=== PATIENT | female | born 1950 | race Caucasian/White ===

== ENCOUNTER 2024-07-01 09:24 | Inpatient (IN) ==
[2024-07-01 09:42] VITALS: BMI 27.6
[2024-07-01] MEDS: SODIUM CHLORIDE 1,000 ML IV SCH (10:23)
--- NOTE | 2024-07-01 11:06 | DI ---
EXAM: SINGLE VIEW CHEST. HISTORY: Shortness of breath, fever COMPARISON: 06/23/2024 FINDINGS: The cardiomediastinal silhouette appears prominent, however the cardiothoracic index cannot be assessed on this exam. Midline sternotomy and operative changes of the proximal aorta are seen. A lead less pacemaker device is suggested overlying the heart. Calcified plaques overlie the aorta. Pulmonary vascularity is within normal limits. Small right basilar consolidation is seen. Mild bl unting of the right costophrenic angle is present. There is no evidence of pneumothorax. Lower cerv ical ACDF changes are seen. Osseous structures are unremarkable. IMPRESSION: Right basilar consolidation concerning for pneumonia. Recommend follow-up to demonstrate resolution. Questionable small right pleural effusion. Prominent heart size with postoperative changes.
--- NOTE | 2024-07-01 11:44 | PCM ---
Date of Service Date Seen by Provider: 07/01/24 Admit Day/Time Admission Date: 07/01/24 Reason for Admission Chief Complaint: STROKE Hospital Provider Hospital Provider: KAYLENE SALDANA, [facility] Primary Care Physician Primary Care Physician: VIDAL WINN History of Present Illness History of Present Illness: 74 yo female initially admitted to this facility for swingbed following frequent hospitalizations due to MESA cirrhosis hepatic encephalopathy and dehydration. Around 5 am when lab went in to draw, patient was not answer questions well. This was reported to nursing staff. Day shift RN assessed patient and was found to be flaccid, unable to follow commands, unable to move extremities. Able to state her name and husbands name but unable to answer any other questions. Head CT completed and negative. Admitted to Med/Surg Inpatient for further work-up. Due to neuro deficit, unable to complete HPI and ROS. [facility] Medical History Stroke (07/01/24) I63.9 - Cerebral infarction, unspecified (ICD-10) Pacemaker Z95.0 - Presence of cardiac pacemaker (ICD-10) CKD (chronic kidney disease) N18.9 - Chronic kidney disease, unspecified (ICD-10) Mild malnutrition E44.1 - Mild protein-calorie malnutrition (ICD-10) Hypercalcemia E83.52 - Hypercalcemia (ICD-10) Fatigue R53.83 - Other fatigue (ICD-10) Secondary hyperparathyroidism N25.81 - Secondary hyperparathyroidism of renal origin (ICD-10) PAF (paroxysmal atrial fibrillation) I48.0 - Paroxysmal atrial fibrillation (ICD-10) Mild intermittent asthma J45.20 - Mild intermittent asthma, uncomplicated (ICD-10) Mixed hyperlipidemia E78.2 - Mixed hyperlipidemia (ICD-10) Glaucoma H40.9 - Unspecified glaucoma (ICD-10) Iron deficiency anemia D50.9 - Iron deficiency anemia, unspecified (ICD-10) Restless leg syndrome G25.81 - Restless legs syndrome (ICD-10) Insomnia G47.00 - Insomnia, unspecified (ICD-10) Chronic pain G89.29 - Other chronic pain (ICD-10) GERD (gastroesophageal reflux disease) K21.9 - Gastro-esophageal reflux disease without esophagitis (ICD-10) Hypothyroidism E03.9 - Hypothyroidism, unspecified (ICD-10) Neuropathy G62.9 - Polyneuropathy, unspecified (ICD-10) Vitamin D deficiency E55.9 - Vitamin D deficiency, unspecified (ICD-10) Liver cirrhosis K74.60 - Unspecified cirrhosis of liver (ICD-10) Hypotension I95.9 - Hypotension, unspecified (ICD-10) CHF (congestive heart failure) I50.9 - Heart failure, unspecified (ICD-10) Surgical History S/P TAVR (transcatheter aortic valve replacement) Z95.2 - Presence of prosthetic heart valve (ICD-10) H/O section Z98.891 - History of uterine scar from previous surgery (ICD-10) History of hysterectomy Z90.710 - Acquired absence of both cervix and uterus (ICD-10) H/O mitral valve replacement with mechanical valve Z95.2 - Presence of prosthetic heart valve (ICD-10) Social History Smoking and tobacco status: Never smoker Substance use type: does not use Allergies Allergies Allergy/AdvReac Type Severity Reaction Status Date / Time cefepime Allergy Severe Swelling Verified 07/01/24 16:11 Penicillins AdvReac Unknown Verified 07/01/24 16:11 Current Medications Home Medications Saccharomyces boulardii 250 mg capsule (Florastor) 250 mg PO .QDAC 06/27/24 [History Confirmed 07/01/24 Last Taken Unknown] albuterol sulfate 90 mcg/actuation aerosol inhaler (Ventolin HFA) 2 puff inhalation 4XD PRN wheezing 06/27/24 [History Confirmed 07/01/24 Last Taken Unknown] allopurinol 100 mg tablet 100 mg PO DAILY 06/27/24 [History Confirmed 07/01/24 Last Taken Unknown] amiodarone 200 mg tablet 200 mg PO DAILY 06/27/24 [History Confirmed 07/01/24 Last Taken Unknown] ascorbic acid (vitamin C) 250 mg tablet (Vitamin C) 250 mg PO DAILY 06/27/24 [History Confirmed 07/01/24 Last Taken Unknown] atorvastatin 20 mg tablet 20 mg PO DAILY 06/27/24 [History Confirmed 07/01/24 Last Taken Unknown] brimonidine 0.15 % eye drops 1 drp ophthalmic (eye) 2XD 06/27/24 [History Confirmed 07/01/24 Last Taken Unknown] bumetanide 2 mg tablet 2 mg PO DAILY 06/27/24 [History Confirmed 07/01/24 Last Taken Unknown] cinacalcet 30 mg tablet 30 mg PO DAILY 06/27/24 [History Confirmed 07/01/24 Last Taken Unknown] epoetin cirilo-epbx 10,000 unit/mL injection solution 10,000 unit subcut WEEKLY 06/27/24 [History Confirmed 07/01/24 Last Taken Unknown] ferrous sulfate 325 mg (65 mg iron) tablet 325 mg PO QAM 06/27/24 [History Confirmed 07/01/24 Last Taken Unknown] fluticasone furoate 100 mcg/actuation blister powder for inhalation (Arnuity Ellipta) 1 inh inhalation BID 06/27/24 [History Confirmed 07/01/24 Last Taken Unknown] hydrocodone 7.5 mg-acetaminophen 325 mg tablet 1 tab PO Q12H PRN pain 06/27/24 [History Confirmed 07/01/24 Last Taken Unknown] ipratropium bromide 21 mcg (0.03 %) nasal spray 2 spray intranasal BID 06/27/24 [History Confirmed 07/01/24 Last Taken Unknown] lactulose 10 gram/15 mL oral solution (Enulose) 30 g PO .ACHS 06/27/24 [History Confirmed 07/01/24 Last Taken Unknown] latanoprost 0.005 % eye drops, emulsion 1 drp BOTHEYES BEDTIME 06/27/24 [History Confirmed 07/01/24 Last Taken Unknown] levothyroxine 125 mcg tablet 125 mcg PO DAILY 06/27/24 [History Confirmed 07/01/24 Last Taken Unknown] lidocaine 5 % topical patch 1 - 3 patch topical DAILY 06/27/24 [History Confirmed 07/01/24 Last Taken Unknown] menthol 0.44 %-zinc oxide 20.6 % topical ointment (Calmoseptine) 1 applic topical DAILY 06/27/24 [History Confirmed 07/01/24 Last Taken Unknown] midodrine 10 mg tablet 10 mg PO 3XD 06/27/24 [History Confirmed 07/01/24 Last Taken Unknown] multivitamin with minerals-folic acid 200 mcg chewable tablet (Adult Multivitamin Gummies) 2 tab PO DAILY 06/27/24 [History Confirmed 07/01/24 Last Taken Unknown] nystatin 100,000 unit/gram topical powder 1 applic topical TID 06/27/24 [History Confirmed 07/01/24 Last Taken Unknown] ondansetron 4 mg disintegrating tablet 4 mg PO Q8H PRN nausea/vomiting 06/27/24 [History Confirmed 07/01/24 Last Taken Unknown] pantoprazole 40 mg tablet,delayed release 40 mg PO DAILY 06/27/24 [History Confirmed 07/01/24 Last Taken Unknown] pregabalin 25 mg capsule (Lyrica) 25 mg PO BID 06/27/24 [History Confirmed 07/01/24 Last Taken Unknown] rifaximin 550 mg tablet 550 mg PO BID 06/27/24 [History Confirmed 07/01/24 Last Taken Unknown] ropinirole 1 mg tablet 1 mg PO .COMPLEX 06/27/24 [History Confirmed 07/01/24 Last Taken Unknown] sodium chloride 0.65 % nasal spray aerosol ([place] Saline) 2 spray intranasal 5XD PRN dry nasal passages 06/27/24 [History Confirmed 07/01/24 Last Taken Unknown] spironolactone 100 mg tablet 100 mg PO 2XD 06/27/24 [History Confirmed 07/01/24 Last Taken Unknown] sucralfate 1 gram tablet 1 g PO BID 06/27/24 [History Confirmed 07/01/24 Last Taken Unknown] trazodone 50 mg tablet 50 mg PO BEDTIME 06/27/24 [History Confirmed 07/01/24 Last Taken Unknown] warfarin 3 mg tablet (Jantoven) 3 mg PO DAILY 06/27/24 [History Confirmed 07/01/24 Last Taken Unknown] Home Albuterol/Ipratropium (Ipratropium/Albuterol Vial.Neb) 3 ml NEB RTQ4H [facility] Last Admin: 07/01/24 18:19 Dose: 3 ml Enoxaparin Sodium (Enoxaparin Sodium 100 Mg/Ml Syr) 80 mg SUBCUT 1700 [place] Sodium Chloride (Sodium Chloride) 1,000 mls @ 75 mls/hr IV .[id number] [facility] Last Admin: 07/01/24 10:23 Dose: 75 mls/hr VANCOMYCIN/WATER FOR INJ (PEG) (Vancomycin 750 Mg/150 Ml Bag) 750 mg in 150 mls @ 150 mls/hr IV Q48HR [facility] Stop: 07/04/24 12:59 Last Admin: 07/01/24 13:41 Dose: 150 mls/hr Aztreonam 2 gm/ Sodium (Chloride) 100 mls @ 150 mls/hr IV Q12HR [facility] Stop: 07/04/24 20:59 Non-Formulary Medication (Brimonidine) 1 drop EACHEYE 2XD [facility] Non-Formulary Medication (Ipratropium [place]) 2 spray JV BID [facility] Non-Formulary Medication (Latanoprost) 1 drop OP BEDTIME [facility] Discontinued Medications Enoxaparin Sodium (Enoxaparin Sodium 100 Mg/Ml Syr) 80 mg SUBCUT 1700 [place] Famotidine (Famotidine Inj 20 Mg/2 Ml Vial) 20 mg IVP ONCE ONE Stop: 07/01/24 14:12 Last Admin: 07/01/24 14:33 Dose: 20 mg Acetaminophen (Acetaminophen) 1,000 mg in 100 mls @ 400 mls/hr IV ONCE ONE Stop: 07/01/24 11:59 Last Admin: 07/01/24 12:06 Dose: 400 mls/hr CEFEPIME 2 GM/D5W (Maxipime 2 Gm/50 Ml D5w) 2 gm in 50 mls @ 100 mls/hr IV ONCE ONE Stop: 07/01/24 12:29 Last Admin: 07/01/24 12:28 Dose: 100 mls/hr Doxycycline Hyclate 100 mg/ (Sodium Chloride) 100 mls @ 50 mls/hr IV Q12HR [facility] Stop: 07/04/24 13:59 Last Admin: 07/01/24 14:56 Dose: Not Given Diphenhydramine HCl 25 mg/ (Sodium Chloride) 100.5 mls @ 200 mls/hr IV ONCE STA Stop: 07/01/24 14:41 Last Admin: 07/01/24 14:55 Dose: Not Given Sodium Chloride (Sodium Chloride) 500 mls @ 500 mls/hr IV BOLUS ONE Stop: 07/01/24 18:15 Last Admin: 07/01/24 17:20 Dose: 500 mls/hr Methylprednisolone Sodium Succinate (Methylprednisolone Sod Succ/Pf 125 Mg/2 Ml Vial) 125 mg IVP ONCE ONE Stop: 07/01/24 14:12 Last Admin: 07/01/24 14:33 Dose: 125 mg Opioid Naive vs. Tolerant Does Patient Take Opioids?: Yes Is Patient Opioid Naive?: No What is Opioid Naive?: *Opioid Naive implies the patient is not already taking opioids or not chroni rossy receiving opioids on a daily basis. *PRN dosing is not "usually" associated with tolerance. *Patients are at higher risk of over-sedation and aspiration. Is Patient Opioid Tolerant?: No What is Opioid Tolerant?: *Opioid Tolerance implies less than the expected response to an opioid. *Acquired tolerance is defined by the patient taking 60mg of oral morphine daily (or equianalgesic dose of another opioid) for 1 week or more. *Often associated with chronic pain. *May take more than usual dose to achieve desired pain control. Physical examination Most Recent Vital Signs: Most Recent Vital Signs Temperature 100.1 F 07/01/24 10:00 Temperature Source Temporal Artery Scan 07/01/24 10:00 Pulse Rate 74 07/01/24 10:00 Respiratory Rate 22 H 07/01/24 10:00 Blood Pressure 124/52 L 07/01/24 10:00 Blood Pressure Mean 76 07/01/24 10:00 Blood Pressure Left Arm 124/52 07/01/24 09:30 Blood Pressure Location Left Arm 07/01/24 10:00 Blood Pressure Position Supine 07/01/24 10:00 O2 Sat by Pulse Oximetry 95 07/01/24 11:27 Oxygen Delivery Method Nasal Cannula 07/01/24 11:27 Oxygen Flow Rate 2 07/01/24 11:27 Height 5 ft 8 in 07/01/24 09:30 Weight 182 lb 07/01/24 09:30 Appearance: Positive Ill-Appearing Skin: Positive Warm HEENT: Positive Normocephalic and PERRLA Neck: Positive Supple and Midline Trachea Chest/Lungs: Positive Symmetrical With Equal Breath Sounds and Other (diminished on Right) Heart: Positive Pulses Normal, Irregular Rhythm, No S3 Auscultated and No S4 Auscultated GI/: Positive Soft, Nontender, Bowel Sounds Normal and No Distention Musculoskeletal: Positive Not Examined Extremities: Positive Intact Peripheral Pulses and Stable Joints Without Laxity Neurological: Positive Disorinted and Other (Lethargic, Responsive to verbal stimuli, Unable to follow commands) Labs This Visit Labs This Visit: Labs This Visit 07/01/24 07/01/24 10:01 10:15 Lactic Acid 4.61 H Ammonia 22.4 Procalcitonin 60.73 H Imaging Imaging: EXAM: CT OF THE HEAD WITHOUT CONTRAST. FINDINGS: The examination is suboptimal secondary to streak artifacts. No intracranial hemorrhage or mass effect is identified. Mild prominence of the sulci is seen. The ventricles are normal in size and configuration. Mild periventricular white matter hypodensities are identified. Left frontoparietal encephalomalacia is again seen. No definite large area of ervin white matter differentiation loss is seen. Intracranial calcified plaque is noted. The calvarium is intact. The visualized paranasal sinuses are unopacified. IMPRESSION: Suboptimal exam. No evidence of an acute intracranial process. Stable left frontoparietal encephalomalacia. Mild atrophy and chronic small vessel ischemic changes. EXAM: SINGLE VIEW CHEST. FINDINGS: The cardiomediastinal silhouette appears prominent, however the cardiothoracic index cannot be assessed on this exam. Midline sternotomy and operative changes of the proximal aorta are seen. A lead less pacemaker device is suggested overlying the heart. Calcified plaques overlie the aorta. Pulmonary vascularity is within normal limits. Small right basilar consolidati on is seen. Mild blunting of the right costophrenic angle is present. There is no evidence of pneumothorax. Lower cervical ACDF changes are seen. Osseous structures are unremarkable. IMPRESSION: Right basilar consolidation concerning for pneumonia. Recommend follow-up to demonstrate resolution. Questionable small right pleural effusion. Prominent heart size with postoperative changes. Review Statement Review Statement: I have independently reviewed and interpreted the labs/EKGs/imaging that were ordered by the ER provider. I have reviewed all outside records that are available currently in our EMR including imaging/notes/labs from previous visits. Plan Plan: 1. Sepsis in setting of HAP - blood cultures pending, trend procal and lactic, broad spectrum antibiotics initiated, unable to complete fluid requirement due to CHF 2. Hospital Acquired Pneumonia - cefepime, doxycycline, and vanco ordered initially, patient had reaction to cefepime; switched to merrem and vanc, legionella, strep pneumo, and mrsa ordered 3. Acute Metabolic Encephalopathy vs Stroke - CT head completed to r/o stroke, unable to complete CTA due to renal function at this time - will complete once improvement, discussed with family can do MRI if mental status does not improve with treatment of pneumonia, avoid neurologically altering agents, NPO 4. Acute on Chronic CKD4 - creatinine baseline around 1.8, up to 2.5 currently; NS@75mL/hr, holding diuretics/nephrotoxins 5. Hyponatremia - mild, likely due to #3, receiving NS, will monitor 6. MESA Cirrhosis - Chronic, continue home medications, check ammonia prn 7. A fib - Chronic, not in RVR, continue home medications 8. CHF - Chronic, currently dry, holding diuretics due to #3 9. Chronic Anemia - procrit injection every tuesday, give 40 units if hemoglobin <11 10. H/O Mechanical Valve Replacement - Continue coumadin with goal INR 2-2.5, INR was supratherapeutic at [facility], was subtherapeutic on Tuesday, currently therapeutic, pharmacy assisting with dosing DVT Prophylaxis: Lovenox due to inability to swallow orl medications Time Spent: Greater than 80 minutes spent with patient, 50% of the time spent with this patient was devoted to counseling and coordination of care. [facility] minutes spent discussing advance care planning. Disposition: Admit to: Med/surg Inpatient Full Code Discussed Plan of Care with Dr. Lexi Hernandez. Medications Medication Orders: Medications Ordered Category Date Time Status Sodium Chloride 0.9% [Sodium Chloride] 1,000 ml Meds 07/01/24 09:30 Active IV 75 mls/hr
[2024-07-01] MEDS: ACETAMINOPHEN 1,000 MG/100 ML BAG IV ONE (12:06)
[2024-07-01 12:20] LABS: BILIRUBIN,URINE Negative (NEGATIVE); CLARITY,URINE Clear (CLEAR); COLOR,URINE Yellow (YELLOW); GLUCOSE, URINE (UA) Trace (NEGATIVE); KETONES,URINE Negative (NEGATIVE); LEUKOCYTE ESTERASE ,URINE Negative (NEGATIVE); NITRITE,URINE Negative (NEGATIVE); PROTEIN,URINE Negative (NEGATIVE); URINE, BLOOD Negative (NEGATIVE); UROBILINOGEN,URINE 0.2 (0.2)
[2024-07-01] MEDS: MAXIPIME 2 GM/50 ML D5W 2 GM/50 ML BAG IV ONE (12:28)
[2024-07-01] MEDS: VANCOMYCIN 750 MG/150 ML BAG 750 MG/150 ML BAG IV SCH (13:41)
[2024-07-01] MEDS: BENADRYL ONE (14:33)
[2024-07-01] MEDS: SOLU-MEDROL 125 MG IVP ONE (14:33)
[2024-07-01] MEDS: PEPCID IVP ONE (14:33)
[2024-07-01] MEDS: BENADRYL 25 MG in SODIUM CHLORIDE 100ML 100 ML IV STA (14:55)
[2024-07-01] MEDS: DOXY-100 100 MG in SODIUM CHLORIDE 100ML 100 ML IV SCH (14:56)
[2024-07-01] MEDS: SODIUM CHLORIDE 500 ML IV ONE ×2 (17:20→20:14)
[2024-07-01 18:07] LABS: SARS COV-2 RNA RAPID NAAT NEGATIVE (NEGATIVE)
[2024-07-01] MEDS: DUONEB NEB SCH (18:19)
[2024-07-01] MEDS: LOVENOX SUBCUT SCH (18:47)
[2024-07-01] MEDS: SODIUM CHLORIDE IV SCH (20:39)
[2024-07-01] MEDS: AZACTAM IV SCH (20:39)
[2024-07-01] MEDS: AZACTAM ONE (20:40)
[2024-07-01] MEDS ORDERED: MAXIPIME 1 GM VIAL 1 GM in SODIUM CHLORIDE 50 ML IV SCH (21:00)
[2024-07-01] MEDS: BRIMONIDINE 0.15% EACHEYE SCH (21:00)
[2024-07-01] MEDS: XALATAN EACHEYE SCH (21:08)
[2024-07-02] MEDS: TYLENOL PO ONE (03:42)
[2024-07-02 05:14] LABS: BASOPHILS % (AUTO) 0.1 % (0.0-3.0); EOSINOPHILS % (AUTO) 0.1 % (0.0-7.0); HEMATOCRIT 26.9 % (37.0-47.0); HEMOGLOBIN 8.4 g/dl (12.0-16.0); IMMATURE GRANULOCYTE # (AUTO) 0.1 (0.0-1.0); IMMATURE GRANULOCYTE % (AUTO) 0.6 % (0.0-5.0); LYMPHOCYTES # (AUTO) 0.3 K/uL (0.60-3.4); LYMPHOCYTES % (AUTO) 1.7 (10.0-50.0); MEAN CORPUSCULAR HEMOGLOBIN 33.2 pg (27.0-31.0); MEAN CORPUSCULAR HGB CONC 31.2 (31.8-35.4); MEAN CORPUSCULAR VOLUME 106.3 fl (81.0-99.0); MONOCYTES # (AUTO) 0.3 K/uL (0.4-2.0); MONOCYTES % (AUTO) 2.3 (0-10); NEUTROPHILS # (AUTO) 13.9 K/ul (2.0-6.9); NEUTROPHILS % (AUTO) 95.2 % (42.2-75.2); PLATELET COUNT 174 10^3/uL (140-440); RED BLOOD COUNT 2.53 10^6/ul (4.20-5.40); WHITE BLOOD COUNT 14.55 K/ul (4.6-10.2)
[2024-07-02 05:35] LABS: ALANINE AMINOTRANSFERASE 58.7 U/L (0-35); ALBUMIN 3.44 g/dL (3.5-5.0); ASPARTATE AMINO TRANSFERASE 118.9 U/L (14-36); BILIRUBIN,TOTAL 1.34 mg/dL (0.2-1.3); BLOOD UREA NITROGEN 55.8 mg/dL (7-17); CALCIUM 7.84 mg/dL (8.4-10.2); CHLORIDE 101.3 mmol/L (98-107); CREATININE 3.43 mg/dL (0.60-1.30); GLUCOSE 259.1 mg/dL (74-106); POTASSIUM 4.27 mmol/L (3.5-5.1); SODIUM 129.6 mmol/L (134.5-145); TOTAL PROTEIN 6.91 g/dL (6.3-8.2)
[2024-07-02] MEDS: DEXTROSE 5% IV SCH (08:56)
[2024-07-02] MEDS: WATER IV SCH (08:56)
[2024-07-02] MEDS: SODIUM BICARBONATE IV SCH (08:56)
[2024-07-02] MEDS: ALBUMIN HUMAN IV ONE (09:15)
--- NOTE | 2024-07-02 11:31 | DCSUM ---
Admission Date Admission Date: 07/01/24 Discharge Date Discharge Date: 07/02/24 Admission Diagnosis Admission Diagnosis: 1. Sepsis in setting of HAP 2. Hospital Acquired Pneumonia 3. Acute Metabolic Encephalopathy 4. Acute on Chronic CKD4 Discharge Diagnosis Discharge Diagnosis: 1. Bacteremia with gram positive cocci in setting of HAP 2. Sepsis in setting of HAP 3. Acute metabolic encephalopathy in setting of bacteremia/HAP, improved 4. Acute on Chronic CKD, worsened 5. Hyponatremia 6. 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 A fib 8. CHF, unknown type 9. Chronic anemia 10. H/o mechanical valve replacement on chronic anticoagulation Hospital Provider Hospital Provider: COTY YEPEZ [facility]-C[facility] Physician Primary Care Physician: VIDAL WINN Summary of History and Physical Summary of History and Physical: 74 yo female with pmhx Joe cirrhosis, CKD 4, AF, bioprosthetic heart valve repl acement INR goal 2-2-1/2, pulmonary hypertension, chronic respiratory failure, s/p pacemaker, s/p carotid endarterectomy, recurrent right pleural effusion s/p Pleurx catheter, multifactorial anemia initially admitted to this facility 06/27- 07/01 for swingbed following frequent hospitalizations for hepatic encephalopathy. She was doing well overall, working with therapy. Around 5 am when lab went in to draw pt on 07/01, patient was not answering questions well. This was reported to nursing staff. Day shift RN assessed patient and was found to be flaccid, unable to follow commands, unable to move extremities. Able to state her name and husbands name but unable to answer any other questions. Head CT completed and negative. Admitted to Med/Surg Inpatient for further work-up. UA negative. CXR showed RLL pneumonia. Procal elevated at 100, lactic >4, renal function had worsened. She was given fluids. BP stabilized and lactic improved. Today, 07/02 patient is clinically improved, mentation is better. She is more alert. However still very weak. Procal has worsened to 117. LA has improved to 2.7. Na 129. Cr worsened to 3.34 (baseline 1.8), BUN 55, bicarb trending down to 12. Pt was given a dose of albumin IV and started on a bicarb drip around 0900 this morning. Blood cultures positive for gram positive cocci. Patient was started on vanc and cefepime on 8/18 but had an allergic reaction to the cefepime. This was replaced by azactam. Legionella and strep pneumo urine antigens pending, both being send outs. BP has continued to be soft but MAP has remained above 65. Discussed with patient, , and daughter Felicia concern for her worsened renal function in light of her receiving fluids, in addition to her comorbidities of JOE and CHF. Recommended higher level of care to which they agreed. Initially requested [place], which they were at capacity. [facility]. Dr. Melchor, industrial eng at [facility] graciously accepts patient. Of note, patient has complained of right shoulder pain the last couple of days to the point she will not use it. Limited exam as she is unable to perform ROM. Shoulder x ray performed which was negative. Had discussed with patient this m orning ordering a CT shoulder, but at time at discharge this has still not been performed by our rad dept. Will defer to accepting hospital for further work up if warranted. Hospital Course Appearance: Pleasant, No Apparent Distress, Alert and Ill-appearing HEENT: Supple CVS: Other (RRR) Abdomen: Soft, Non-Tender, No Distention and Other (+mild ascites noted ) Respiratory: No Accessory Muscle Use Extremities: Other (+trace edema damien ) Additional Findings: +limited ROM of right shoulder, pt unable to move it. She is able to flex her elbow, but has pain in doing so. 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 No redness noted to shoulder. No wounds. Otherwise pt has marked generalized weakness damien. Vital Signs: Most Recent Vital Signs Temperature 98.0 F 07/02/24 10:35 Temperature Source Temporal Artery Scan 07/02/24 10:35 Pulse Rate 80 07/02/24 10:35 Respiratory Rate 14 07/02/24 10:35 Blood Pressure 93/55 L 07/02/24 10:35 Blood Pressure Mean 67 07/02/24 10:35 Blood Pressure Left Arm 124/52 07/01/24 09:30 Blood Pressure Location Left Arm 07/02/24 10:35 Blood Pressure Position Supine 07/02/24 10:00 O2 Sat by Pulse Oximetry 99 07/02/24 10:35 Oxygen Delivery Method Nasal Cannula 07/02/24 10:35 Oxygen Flow Rate 2 08/19/24 10:35 Height 5 ft 8 in 07/01/24 09:30 Weight 182 lb 3 oz 07/02/24 05:26 Telemetry Type Remote Telemetry 07/02/24 07:00 Telemetry Monitoring Continues 07/02/24 07:00 Irregular Telemetry Rate (Approximate) 90-110BPM 07/02/24 07:00 Telemetry Heart Rate 104 H 07/02/24 07:00 EKG IN Interval 0.26 H 07/01/24 17:43 EKG QRS Interval 0.12 H 07/02/24 07:00 Telemetry Strip Reading AFIB/BBB 07/02/24 07:00 Imaging: EXAM: SINGLE VIEW CHEST. HISTORY: Shortness of breath, fever COMPARISON: 06/23/2024 FINDINGS: The cardiomediastinal silhouette appears prominent, however the cardiothoracic index cannot be assessed on this exam. Midline sternotomy and operative changes of the proximal aorta are seen. A lead less pacemaker device is suggested overlying the heart. Calcified plaques overlie the aorta. Pulmonary vascularity is within normal limits. Small right basilar consolidation is seen. Mild blunting of the right costophrenic angle is present. There is no evidence of pneumothorax. Lower cervical ACDF changes are seen. Osseous structures are unremarkable. IMPRESSION: Right basilar consolidation concerning for pneumonia. Recommend follow-up to demonstrate resolution. Questionable small right pleural effusion. Prominent heart size with postoperative changes. EXAM: CT OF THE HEAD WITHOUT CONTRAST. HISTORY: Neuro change. COMPARISON: 05/07/2024. TECHNIQUE: Axial noncontrast CT of the head. Sagittal and coronal reformats were obtained. FINDINGS: The examination is suboptimal secondary to streak artifacts. No intracranial hemorrhage or mass effect is identified. Mild prominence of the sulci is seen. The ventricles are normal in size and configuration. Mild periventricular white matter hypodensities are identified. Left frontoparietal encephalomalacia is again seen. No definite large area of ervin white matter differentiation loss is seen. Intracranial calcified plaque is noted. The calvarium is intact. The visualized paranasal sinuses are unopacified. IMPRESSION: Suboptimal exam. No evidence of an acute intracranial process. Stable left frontoparietal encephalomalacia. Mild atrophy and chronic small vessel ischemic changes. Lab Results Last 24 Hours: 07/02/24 07/01/24 07/01/24 05:08 18:40 17:35 WBC 14.55 H RBC 2.53 L Hgb 8.4 L Hct 26.9 L MCV 106.3 H MCH 33.2 H MCHC 31.2 L RDW Coeff of Katie 17.0 H Plt Count 174 Immature Gran % (Auto) 0.6 Neut % (Auto) 95.2 H Lymph % (Auto) 1.7 L Tompkins % (Auto) 2.3 Eos % (Auto) 0.1 Baso % (Auto) 0.1 Neut # (Auto) 13.9 H Lymph # (Auto) 0.3 L Tompkins # (Auto) 0.3 L Eos # (Auto) 0.0 Baso # (Auto) 0.0 Immature Gran # (Auto) 0.1 Sodium 129.6 L Potassium 4.27 Chloride 101.3 Carbon Dioxide 12.0 L Anion Gap 20.57 BUN 55.8 H Creatinine 3.43 H Estimated GFR (MDRD) 13.00 BUN/Creatinine Ratio 16.26 Glucose 259.1 H D Lactic Acid 2.78 H D 4.75 H Calcium 7.84 L Total Bilirubin 1.34 H AST 118.9 H ALT 58.7 H Alkaline Phosphatase 138.0 D Total Protein 6.91 Albumin 3.44 L Globulin 3.47 Albumin/Globulin Ratio 0.99 Procalcitonin 117.81 H 100.12 H Urine Color Urine Clarity Urine pH Ur Specific [place] Urine Protein Urine Glucose (UA) Urine Ketones Urine Blood Urine Nitrite Urine Bilirubin Urine Urobilinogen Ur Leukocyte Esterase SARS CoV-2 RNA Rapid JOHNNY Negative 07/01/24 10:47 WBC RBC Hgb Hct MCV MCH MCHC RDW Coeff of Katie Plt Count Immature Gran % (Auto) Neut % (Auto) Lymph % (Auto) Tompkins % (Auto) Eos % (Auto) Baso % (Auto) Neut # (Auto) Lymph # (Auto) Tompkins # (Auto) Eos # (Auto) Baso # (Auto) Immature Gran # (Auto) Sodium Potassium Chloride Carbon Dioxide Anion Gap BUN Creatinine Estimated GFR (MDRD) BUN/Creatinine Ratio Glucose Lactic Acid Calcium Total Bilirubin AST ALT Alkaline Phosphatase Total Protein Albumin Globulin Albumin/Globulin Ratio Procalcitonin Urine Color Yellow Urine Clarity Clear Urine pH 5.0 Ur Specific [place] 1.015 Urine Protein Negative Urine Glucose (UA) Trace H Urine Ketones Negative Urine Blood Negative Urine Nitrite Negative Urine Bilirubin Negative Urine Urobilinogen 0.2 Ur Leukocyte Esterase Negative SARS CoV-2 RNA Rapid JOHNNY Discharge Instructions Discharge Planning: Discharge Planning > [address] Piero Hernandez. Transfer to [facility] for higher level of care. Discharge Medications: Medications at Discharge (Home Meds & RX) Discharge Plan Discharge Discharge Orders: Discharge Patient (ONCE); Ordered 07/02/24 Ordered By: COTY YEPEZ Activity Restrictions/Additional Instructions: TRANSFER TO [facility] ACCEPTING PHYSICIAN: DR. LAUREEN POTTERARB IP Patient Disposition: TSF SHORT-TRM HOSP Did you review [place] STAFFING PROGRAM MANAGER for ALL controlled substances?: Not Applicable Discussed opioids are addictive and Narcan is available by prescription or from pharmacy.: No Condition: Fair
[2024-07-02 12:02] VITALS: BP 113/51; RESP 18; TEMP 97.8
[2024-07-02 12:38] VITALS: PULSE 100
[2024-07-02] MEDS: SUBLIMAZE IVP ONE (12:59)
[2024-07-02] MEDS ORDERED: LOVENOX SUBCUT SCH (17:00)
[2024-07-04 16:18] LABS: SPECIMEN SOURCE Urine (.); STEP PNEUMO ORGANISM ID Not indicated. (.); STREP PNEUMO AG Negative (Negative); STREP PNEUMO BODY FLUID CULT Not indicated. (.)
== END 2024-07-02 13:05 | disposition short-term general hospital (02) | DRG 871 ==
LOC: MEDSURG B 09:24
PROVIDERS: ADMIT Hospitalist; ATTEND Physician Assistant